=== PATIENT | female | born 1970 | race African-American/Black ===

== ENCOUNTER 2019-02-22 15:44 | Emergency (ER) | payer MEDICAID ==
[~2019-02-22] VITALS: Ht 172.7 cm; Wt 112.7 kg
[2019-02-22 16:09] VITALS: Ht 172.7 cm; Wt 112.7 kg
[2019-02-22] MEDS ORDERED: BLOOD PRESSURE MED (16:11)
[2019-02-22] MEDS ORDERED: GLUCOPHAGE500 MG PO (16:11)
[2019-02-22] MEDS ORDERED: MOBIC7.5 MG PO (16:11)
[2019-02-22 21:49] VITALS: BP 135/85
--- NOTE | 2019-02-23 19:00 | NUR ---
CM faxed referal to [facility] #[phone]. Included face sheet and contact number for patient. Sheron Bright RN CM
== END 2019-02-22 21:30 | disposition home or self-care (01) ==
LOC: D.ER 15:44
DX: M25.552 Pain in left hip (principal); Z96.642 Presence of left artificial hip joint

== ENCOUNTER 2019-08-24 01:41 | Emergency (ER) | payer MEDICAID ==
[~2019-08-24] VITALS: Ht 172.7 cm; Wt 112.7 kg
[~2019-08-24 01:41] MED LIST: BLOOD PRESSURE MED; GLUCOPHAGE500 MG PO; MOBIC7.5 MG PO
[2019-08-24 01:45] VITALS: Ht 172.7 cm; Wt 112.7 kg
[2019-08-24 03:44] LABS: APPEARANCE HAZY (CLEAR); BILIRUBIN NEGATIVE (NEGATIVE); COLOR YELLOW (YELLOW); GLUCOSE NEGATIVE (NEGATIVE); KETONE NEGATIVE (NEGATIVE); NITRITE NEGATIVE (NEGATIVE); PROTEIN 2+ mg/dL (NEGATIVE); UROBILINOGEN NORMAL (NORMAL)
[2019-08-24 03:46] LABS: BACTERIA FEW /hpf (NEGATIVE); EPITHELIAL CELLS 0-5 /hpf (0-5); RED CELLS - URINE 0-5 /hpf (0-5); WHITE CELLS - URINE 0-5 /hpf (NEGATIVE)
[2019-08-24] MEDS ORDERED: HYDROCODON-ACE1 EAC7 PO (03:52)
[2019-08-24 04:05] VITALS: BP 126/85
== END 2019-08-24 04:06 | disposition home or self-care (01) ==
LOC: D.ER 01:41
PROVIDERS: Family Medicine
DX: M25.552 Pain in left hip (principal)